=== PATIENT | female | born 1950 | race Caucasian/White ===

== ENCOUNTER → 2021-04-19 | Day surgery (SDC) | payer MEDICARE, OTHER ==
[~2021-04-19] VITALS: Ht 166.4 cm; Wt 84.4 kg
[~2021-04-19] MED LIST: ASPIRIN EC81 M1 PO; ATACAND32 MG PO; ATARAX25 MG PO; AZO D-MANNOSE500 MG PO; B COMPLEX1 EACH PO; CHLORTHALIDONE25 MG PO; COREG25 MG PO; CRANBERRY250 MG PO; CYMBALTA 30MG C30 MG PO; ELAVIL25 MG PO; FENOFIBRIC ACI135 MG PO; LIPITOR20 MG PO; MIRALAX17 GM PO; NORVASC 10MG TA10 MG PO; PREMARIN V45 GM/TUBE VG; PROBIOTIC1 EAC2 PO; PROTONIX 40MG T40 MG PO; TOPROL XL 25MG25 MG PO; TOPROL XL 50 MG50 MG PO; TRESIBA FL100 UNIT/1 SC; TRIMETHOPRIM100 MG PO; VALSARTAN160 MG PO; VICTOZA 3-0.6 MG/0.1 IM/IV/SC; VITAMIN D325 MC4 PO; ZINC50 M1 PO
[2021-04-19 12:46] LABS: CREATININE 0.94 mg/dL (0.51-0.95); POTASSIUM 4.2 mmol/L (3.5-5.1)
[2021-04-19 13:29] LABS: ALBUMIN 3.8 g/dL (3.4-5.0); BILIRUBIN - TOTAL 0.3 mg/dL (0.2-1.0); GLOBULIN (CALCULATION) 3.7 g/dL; TOTAL PROTEIN 7.5 g/dL (6.4-8.2)
== END | disposition home or self-care (01) ==
LOC: FAS 10:40
PROVIDERS: Surgery
DX: K22.82 Esophagogastric junction polyp (principal); K31.7 Polyp of stomach and duodenum; K21.9 Gastro-esophageal reflux disease without esophagitis; K22.2 Esophageal obstruction; I12.9 Hypertensive chronic kidney disease with stage 1 through stage 4 chronic kidney disease, or unspecified chronic kidney disease; E11.22 Type 2 diabetes mellitus with diabetic chronic kidney disease; N18.30 Chronic kidney disease, stage 3 unspecified; E78.5 Hyperlipidemia, unspecified; J44.9 Chronic obstructive pulmonary disease, unspecified; G47.30 Sleep apnea, unspecified; M19.09 Primary osteoarthritis, other specified site; F41.9 Anxiety disorder, unspecified; F32.A Depression, unspecified; R13.10 Dysphagia, unspecified; Z85.820 Personal history of malignant melanoma of skin; Z88.2 Allergy status to sulfonamides; Z88.1 Allergy status to other antibiotic agents; Z88.8 Allergy status to other drugs, medicaments and biological substances; Z90.710 Acquired absence of both cervix and uterus; Z79.82 Long term (current) use of aspirin; Z98.51 Tubal ligation status; Z79.4 Long term (current) use of insulin; Z79.899 Other long term (current) drug therapy; Z80.1 Family history of malignant neoplasm of trachea, bronchus and lung
CPT/HCPCS: 36415; 80053; 82150; 83690; C1726; J2250; J2704; J7120